=== PATIENT | male | born 1985 ===

== ENCOUNTER → 2017-01-27 | Outpatient (REF) | payer OTHER ==
[2017-01-27 14:36] LABS: ANION GAP 6 MEQ/L (8-16); BLOOD UREA NITROGEN 12 MG/DL (7-18); CALCIUM LEVEL 9.1 MG/DL (8.5-10.1); CARBON DIOXIDE LEVEL 30 MEQ/L (21-32); CHLORIDE LEVEL 104 MEQ/L (98-107); CREATININE FOR GFR 1.25 MG/DL (0.70-1.30); GLOMERULAR FILTRATION RATE > 60.0 (>60); GLUCOSE, FASTING 80 MG/DL (70-105); SODIUM LEVEL 140 MEQ/L (136-145)
== END ==
LOC: M LAB REF 13:23
PROVIDERS: ATTEND Surgery
DX: R10.9 Unspecified abdominal pain (principal)